=== PATIENT | male | born 1935 | race Caucasian/White ===

== ENCOUNTER 2017-01-10 10:42 | Emergency (ER) | payer MEDICARE, OTHER ==
--- NOTE | 2017-01-10 10:51 | UC ---
Complaint Male HPI - HPI Summary HPI Summary: 81 YEAR OLD MALE PRESENTS WITH COMPLAINS OF RASH ON RIGHT GROWN. - History of Current Complaint Stated Complaint: GROIN Time Seen by Provider: 01/10/17 10:50 Hx Obtained From: Patient Onset/Duration: Sudden Onset Timing: Constant Severity Initially: Moderate Severity Currently: Moderate - Allergies/Home Medications Allergies/Adverse Reactions: Allergies Allergy/AdvReac Type Severity Reaction Status Date / Time No Known Allergies Allergy Verified 01/10/17 10:55 PMH/Surg Hx/FS Hx/Imm Hx - Surgical History Surgical History: Yes Surgery Procedure, Year, and Place: cardiac angioplasty 2001. partial knee replacement 2006. leg stents. venous insufficiency. right groin arterial surgery and bypass 2011 - Social History Alcohol Use: Occasionally Substance Use Type: None Smoking Status (MU): Former Smoker - Immunization History Most Recent Influenza Vaccination: this season Most Recent Tetanus Shot: <2years Most Recent Pneumonia Vaccination: <10 years Review of Systems Constitutional: Negative Skin: Rash - RIGHT GROIN Eyes: Negative ENT: Negative Respiratory: Negative Cardiovascular: Negative Gastrointestinal: Negative Genitourinary: Negative Motor: Negative Neurovascular: Negative Musculoskeletal: Negative Neurological: Negative Psychological: Negative All Other Systems Reviewed And Are Negative: Yes Physical Exam Triage Information Reviewed: Yes Appearance: Well-Appearing Eye Exam: Normal ENT Exam: Normal Dental Exam: Normal Neck exam: Normal Neck: Positive: 1 Respiratory Exam: Normal Cardiovascular Exam: Normal Abdominal Exam: Normal Musculoskeletal Exam: Normal Neurological Exam: Normal Psychological Exam: Normal Skin: Positive: rashes - RIGHT GROIN Complaint Male Course/Dx - Differential Dx/Diagnosis Provider Diagnoses: FUNGAL RASH RIGHT GROIN Discharge - Discharge Plan Condition: Stable Disposition: HOME Prescriptions: Amoxicillin PO (*) [Amoxicillin 875 MG (*)] 875 mg PO BID #20 tab Clotrimazole/Betamethasone* [Lotrisone Cream*] 1 applic TOPICAL BID PRN #90 gm PRN Reason: Itching Nystatin TOP POWDER* 1 applic TOPICAL BID #1 btl Patient Education Materials: Tinea Corporis (ED), Jock Itch (ED), Groin Pain ( ED), Skin Yeast Infection (ED) Referrals: Spencer Murray MD [Primary Care Provider] -
== END 2017-01-10 11:15 | disposition home or self-care (01) ==
LOC: UCEAST 10:42
DX: R21 Rash and other nonspecific skin eruption (principal); Z87.891 Personal history of nicotine dependence
CPT/HCPCS: 99212; G0463

== ENCOUNTER 2017-02-27 10:53 | Emergency (ER) | payer MEDICARE, OTHER ==
[2017-02-27 11:23] VITALS: BP 141/58
== END 2017-02-27 12:20 | disposition left against medical advice (07) ==
LOC: UCEAST 10:53
DX: S91.309A Unspecified open wound, unspecified foot, initial encounter (principal); Z53.21 Procedure and treatment not carried out due to patient leaving prior to being seen by health care provider

== ENCOUNTER 2019-02-17 15:05 | Emergency (ER) | payer MEDICARE, OTHER ==
--- OUTSIDE RECORDS SUMMARY | 2019-02-17 15:11 | XMS REPORT | Summary of Care ---
:1935 Author Organization [facility] Address [address] [address] Care Team Providers Name Role Phone Lit Sharif Unavailable Luis Fishman Primary Care Provider Xavier Toledo MD Unavailable Unavailable Reason for Referral Diagnostic Testing (Routine) Status Reason Specialty Diagnoses / Referred By Referred To Procedures Contact Contact Pending Review Diagnoses S/P AVR (aortic valve replacement) Coronary artery disease involving [place] coronary artery of [place] heart without angina pectoris Kole, Procedures ECHOCARDIOGRAM TTE MD Lit [address] [place] [address] MRI/CAT/PET Scan (Routine) Status Reason Specialty Diagnoses / Procedures Referred By Referred To Contact Contact Authorized Diagnoses Coronary artery disease involving [place] coronary artery of [place] heart without angina pectoris Kole Procedures NM SPECT CHEST HEART PHARMACOLOGIC STRESS/REST (DIGIRAD) MD Lit [address] [place] [address] Reason for Visit Reason Comments Follow Up Pt. in for a follow up. Echo done on 01/12/19. Reports Some Shortness of Breath. Encounter Details Date Type Department Care Team Description 01/19/2019 Office Visit Moe Sharif Dyslipidemia (Primary Dx) ; Cardiology MD Lit S/P AVR (aortic valve replacement); [address] Coronary artery disease involving [place] coronary artery of [place] heart without angina pectoris; [place] [address] [place] [address] Essential hypertension [phone] Allergies No Known Allergiesdocumented as of this encounter (statuses as of 01/19/2019) Medications Medication Sig Dispensed Refills Start Date End Date Status Multiple Vitamin (DAILY Take 1 Each by 0 Active VITAMIN PO) mouth DAILY. Aspirin (SB LOW DOSE ASA Take 1 Each by 0 Active EC) 81 MG Oral Tab EC mouth EVERY MORNING. Glucosamine-Chondroitin Take by mouth. 0 Active (GLUCOSAMINE CHONDR COMPLEX PO) [place]-3 Fatty Acids Take by mouth. 0 Active (FISH OIL BURP-LESS PO) nitroglycerin Place 1 Tab 25 Tab 0 08/30/2015 Active (NITROSTAT) 0.4 MG under tongue Sublingual SL EVERY FIVE TabIndications: Coronary MINUTES artery disease involving NEEDED for chest [place] coronary artery pain. of [place] heart without angina pectoris cyanocobalamin 100 MCG Take 100 mcg by 0 Active Oral Tab mouth DAILY. pregabalin (LYRICA) 100 Take 1 Cap by 180 Cap 3 03/17/2018 Active MG Oral Cap mouth TWICE DAILY. Max Daily Amount: 200 mg. Code D Dx M79.2 atorvastatin (LIPITOR) TAKE 1 TABLET BY 90 Tab 3 09/01/2018 Active 80 MG Oral MOUTH DAILY TabIndications: Dyslipidemia clopidogrel (PLAVIX) 75 Take 1 Tab by 90 Tab 3 09/05/2018 Active MG Oral TabIndications: mouth DAILY. PAD (peripheral artery disease) (FORM[facility]LY [facility]) levothyroxine Take 1 Tab by 90 Tab 3 09/05/2018 Active (SYNTHROID) 25 MCG Oral mouth BEFORE TabIndications: BREAKFAST. Hypothyroid metoprolol succinate Take 1 Tab by 90 Tab 3 09/05/2018 Active (TOPROL XL) 100 MG Oral mouth DAILY. TABLET SR 24 HR fluoxetine (PROZAC) 20 Take 1 Cap by 90 Cap 3 09/05/2018 Active MG Oral Cap mouth DAILY. lisinopril (PRINIVIL, TAKE 1 TABLET BY 90 Tab 1 01/17/2019 Active ZESTRIL) 5 MG Oral Tab MOUTH DAILY documented as of this encounter (statuses as of 01/19/2019) Active Problems Problem Noted Date Solar purpura 08/15/2017 S/P AVR 11/17/2015 S/P CABG (coronary artery bypass graft) 11/17/2015 H/O ETOH abuse 11/07/2014 Knee pain, right 07/20/2014 Stable angina 11/21/2013 Aortic stenosis, severe 11/21/2013 CAD (coronary artery disease) 08/15/2013 Overview: Angioplasty 1995, normal nuclear study 2011 Dyslipidemia 08/14/2011 Overview: LDL 90 on Lipitor 40mg in September 2010 BMI 31.0-31.9,adult 08/14/2011 PAD (peripheral artery disease) Overview: s/p RLE fem-pop, LE stent; 01/2010, vascular surgeon in [facility]; normal stress test 01/2010; significant claudication symptoms; failed angioplasty in [place] 2011 Hypertension Hypothyroid documented as of this encounter (statuses as of 01/19/2019) Resolved Problems Problem Noted Date Resolved Date Sepsis 02/20/2015 09/01/2015 Bacteremia 02/05/2015 09/01/2015 Angina pectoris 11/21/2013 11/21/2013 Atherosclerosis of leg with intermittent claudication 2011 08/15/2013 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 2011 08/15/2013 documented as of this encounter (statuses as of 01/19/2019) Immunizations Name Administration Dates Next Due Depo Medrol (80mg) 01/25/2015, 08/25/2014 Influenza (IM) Preservative Free 11/26/2012, 01/05/2012 Influenza Vaccine High Dose 02/22/2018, 01/13/2017, 02/12/2016, 01/05/2015, 01/09/2014 PNEUMOCOCCAL POLYSACCHARIDE VACCINE 02/12/2016 Pneumococcal Conjugate Vaccine 09/06/2014 documented as of this encounter Social History Tobacco Use Types Packs/Day Years Used Date Former Smoker Cigarettes 1 40 Quit: 04/06/1982 Smokeless Tobacco: Former User Chew Alcohol Use Drinks/Week oz/Week Comments Yes 7 Glasses of wine 21.0 A few drinks a day 14 Standard drinks or equivalent Sex Assigned at Date Recorded Not on file Job Start Date Occupation Industry Not on file Not on file Not on file Travel History Travel Start Travel End No recent travel history available. documented as of this encounter Last Filed Vital Signs Vital Sign Reading Time Taken Comments Blood Pressure 130/68 01/19/2019 10:00 AM EDT Pulse 68 01/19/2019 10:00 AM EDT Temperature - - Respiratory Rate - - Oxygen Saturation - - Inhaled Oxygen Concentration - - Weight 103.4 kg (228 lb) 01/19/2019 10:00 AM EDT Height 177.8 cm (5' 10") 01/19/2019 10:00 AM EDT Body Mass Index 32.71 01/19/2019 10:00 AM EDT documented in this encounter Patient Instructions Patient InstructionsLit Sharif MD - 01/19/2019 10:00 AM EDT No medication changes today. Schedule a nuclear stress test sometime in the next month. NO CAFFEINE FOR 24 HOURS PRIOR TO THE TEST. Schedule an echocardiogram in about 1 year or sooner if needed. documented in this encounter Progress Notes Lit Sharif MD - 01/19/2019 10:00 AM EDT [facility] Note Patient: Jostin Escobar Date of : 1935 Date of Service: 01/19/2019 REFERRING PRACTITIONER: Lit Sharif PRIMARY CARE PROVIDER: Luis Fishman Chief Complaint: Chief Complaint Patient presents with Follow Up Pt. in for a follow up. Echo done on 01/12/19. Reports Some Shortness of Breath. History of Present Illness: We had the pleasure of seeing Jostin Escobar today at the [facility] Cardiology Office. He is a 83-y.o. male with CAD (40% mLAD, SOLE STAINER of OM3, 100% mid RCA with L-->Rcollaterals on cath 10/2013 with SVG sequential to distal RCA and distal OM 11/06/14 during AVR), PAD s/p R CPC CODER, SFA, and profunda endarterectomies 2011, HTN, HLD, severe aortic stenosis s/p #23 Marck-Skaggs Magna bioprosthetic AVR 11/06/[address] Ventura and subsequent MRSA bacteremia (and ?endocarditis) s/p successful antibiotic therapy , EtOH abuse, and obesity. Mr. Escobar returns to cardiology clinic today for routine annual f/u of his CAD , HTN, and bioprosthetic AVR. Since his last visit with me, he reports feeling pretty well. He continues to be limited by his LE claudication and can't quite make it 100 yards before having to stop d/t leg pain. His wifecarl says that he looks quite SOB but the patient denies that symptom and denies any CP/ pressure. Denies any palpitations, lightheadedness, or syncope. No orthopnea, paroxysmal dyspnea, or lower extremity edema. No bleeding issues on ASA and Plavix. Notes that he doesn't have much energy either; was started on Prozac by Dr. Fishman but he hasn't noticed any improvement in his symptoms with that med. 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 CAD (coronary artery disease) 08/15/2013 Angioplasty 1995, Coronary artery disease s/p stent and then CABG V 2014 H/O ETOH abuse 11/07/2014 Hyperlipidemia Hypertension Hypothyroid Knee pain, right 07/20/2014 MRSA infection Osteoarthrosis and allied disorders knees and hips PAD (peripheral artery disease) ([facility]) s/p RLE fem-pop, LE stent; 01/2010, vascular surgeon in [place] and [place]; normal stress test 01/2010; significant claudication symptoms; failed angioplasty in [place] 2011; aspirin only; had R foot ulcer which healed Peripheral neuropathic pain Past Surgical History: Procedure Laterality Date POST-HEART CATH VS & CHECK PULSES BALO ANGIOP ICRA PRQ 1993 0 stents BP IN BOTH ARMS FOR CABG PATIENT CARDIAC SURGERY: POSTOP CABG 11/06/2014 CARDIAC SURGERY: POSTOP VALVE 2014 CATHETERIZATION HEART LEFT N/A 10/21/2013 Procedure: CATHETERIZATION HEART LEFT; Surgeon: Abdifatah Mayers MD; Location: [facility]; Laterality:N/A; CORONARY ARTERIOGRAM, ATTEMPTED PTCA OF SOLE STAINER OF RCA, HEMOBAND TO RIGHT RADIAL CONSULT TO CARDIO/THORACIC SURGERY KNEE ARTHROSCOPY 2006 Partial knee in [place] PA PERIPHERAL ANGIOPLASTY PA RECONSTRUCT SCAPHOID CARPAL W PROSTHESIS PA VEIN BYPASS GRAFT,FEM-POP 2009 TONSILLECTOMY UNLISTED PROCEDURE,MUSCULOSKELE No Known Allergies Current Outpatient Medications Medication Aspirin (SB LOW DOSE ASA EC) 81 MG Oral Tab EC atorvastatin (LIPITOR) 80 MG Oral Tab clopidogrel (PLAVIX) 75 MG Oral Tab cyanocobalamin 100 MCG Oral Tab fluoxetine (PROZAC) 20 MG Oral Cap Glucosamine-Chondroitin (GLUCOSAMINE CHONDR COMPLEX PO) levothyroxine (SYNTHROID) 25 MCG Oral Tab lisinopril (PRINIVIL, ZESTRIL) 5 MG Oral Tab metoprolol succinate (TOPROL XL) 100 MG Oral TABLET SR 24 HR Multiple Vitamin (DAILY VITAMIN PO) nitroglycerin (NITROSTAT) 0.4 MG Sublingual SL Tab [place]-3 Fatty Acids (FISH OIL BURP-LESS PO) pregabalin (LYRICA) 100 MG Oral Cap Family History Problem Relation Age of Onset Cancer Mother breast Hypertension Mother Heart Maternal Grandfather GI Brother Cancer Daughter breast ca; lumpectomy No Known Problems Son No Known Problems Son No Known Problems Daughter Social History Socioeconomic History Marital status: Spouse name: Not on file Number of children: Not on file Years of education: Not on file Highest education level: Not on file Occupational History Not on file Social Needs Financial resource strain: Not on file Food insecurity: Worry: Not on file Inability: Not on file Transportation needs: Medical: Not on file Non-medical: Not on file Tobacco Use Smoking status: Former Smoker Packs/day: 1.00 Years: 40.00 Pack years: 40.00 Types: Cigarettes Last attempt to quit: 04/06/1982 Years since quittin.8 Smokeless tobacco: Former User Types: Chew Substance and Sexual Activity Alcohol use: Yes Alcohol/week: 21.0 standard drinks Types: 7 Glasses of wine, 14 Standard drinks or equivalent per week Comment: A few drinks a day Drug use: No Sexual activity: Not on file Lifestyle Physical activity: Days per week: Not on file Minutes per session: Not on file Stress: Not on file Relationships Social connections: Talks on phone: Not on file Gets together: Not on file Attends taoist service: Not on file Active member of club or organization: Not on file Attends meetings of clubs or organizations: Not on file Relationship status: Not on file Intimate partner violence: Fear of current or ex partner: Not on file Emotionally abused: Not on file Physically abused: Not on file Forced sexual activity: Not on file Other Topics Concern Back Care Not Asked Bike Helmet Not Asked Blood Transfusions Not Asked Caffeine Concern Not Asked Exercise Not Asked Hobby Hazards Not Asked International Travel Not Asked Service Not Asked Occupational Exposure Not Asked Seat Belt Not Asked Self-Exams Not Asked Sleep Concern Not Asked Special Diet Not Asked Stress Concern Not Asked Weight Concern Not Asked Social History Narrative [place] in [place]. 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 Physical Exam: Vitals: 01/19/19 1000 BP: 130/68 Pulse: 68 Weight: 228 lb (103.4 kg) Height: 5' 10" (1.778 m) Body mass index is 32.71 kg/m. General: Obese, alert 83-y.o. male in NAD HEENT: anicteric, MMM, no E/E OP, conj pink Neck: JVP approx 7-8 cm above RA, no carotid bruits or LAD CV: RRR, normal S1/S2 with soft EVELYN at USB as before but no other appreciable murmurs. Pulm: CTA bilaterally without wheezes, rhonchi, or rales. No increased work of breathing. Abd: soft, obese, NT, ND, +BS. No appreciable pulsatile masses or bruits. Ext: 1+ bilateral LE edema R>L as before; no cyanosis, redness, or warmth. Feet warm but non-palpable pedal pulses as before. Neuro: no gross focal deficits Skin: no visible lesions Labs: Lab Results Component Value Date NA 135 09/03/2018 K 4.3 09/03/2018 CL 102 09/03/2018 CO2 25 09/03/2018 GLUCOSE 111 (H) 09/03/2018 BUN 13 09/03/2018 CREATININE 0.8 09/03/2018 CALCIUM 8.7 09/03/2018 TP 6.2 (L) 09/03/2018 ALBUMIN 3.8 09/03/2018 AST 38 09/03/2018 ALT 33 09/03/2018 ALK 70 09/03/2018 TBILI 0.8 09/03/2018 Lab Results Component Value Date CHOL 123 12/17/2016 TRIG 134 12/17/2016 HDL 38 (L) 12/17/2016 LDL 58 12/17/2016 LDLHDLRATIO 1.5 12/17/2016 JOSÉ ANTONIO 3.2 12/17/2016 Cardiac Studies: EKG Today (I personally reviewed): NSR in 60s [id number] deg AVB and incomplete RBBB. Inferior Q waves. No sig change from prior. TTE 01/12/19: FINAL IMPRESSION: Mild concentric LVH with mild left atrial enlargement. Normal LV systolic function with mild RCA/Cx territory wall motion abnormalities, as described. Estimated LVEF 60-65%. Normal right heart size and RV systolic function. Normally functioning bioprosthetic aortic valve, as described. No pericardial effusion. Compared to prior study 08/21/2017, transaortic gradients are similar and calculated aortic valve area is slightly higher (likely due to higher measured LVOT VTI). Other findings are largely similar. Regadenoson SPECT 10/13/13: Impression: Findings indicative of mid size, moderate intensity ischemia involving the apical inferior, apical lateral, mid and part of basal inferolateral segments. These changes are new compared to previous myocardial perfusion study done in 12.10.2011. Fixed defect involving basal, mid inferior and part of basal inferolateral segments Left ventricular ejection fraction 67%. No focal wall motion abnormality is seen. Left Heart Cath 10/21/13: SELECTIVE CORONARY ANGIOGRAPHY: 1. LEFT MAIN CORONARY ARTERY: The left main coronary artery was 6-mm in diameter and 6-mm in length. Mild disease was noted in the left main, about approximately 30%. The left main was bifurcating to the left anterior descending and to the left circumflex. 2. LEFT ANTERIOR DESCENDING CORONARY ARTERY: The left anterior descending coronary artery had only one lesion about 40% in the mid portion that was not hemodynamically significant. 3. LEFT CIRCUMFLEX CORONARY ARTERY: The left circumflex coronary artery had significant chronic total occlusion on the obtuse marginal three branch. The obtuse marginal three branch appeared to be partially getting collaterals, possibly from the left anterior descending. 4. RIGHT CORONARY ARTERY: The right coronary artery was a dominant vessel. The mid portion of the right coronary artery had 100% total occlusion. Downstream from the total occlusion another area of possibly chronic total occlusion was also noted on the [id number] right coronary artery. Importantly also, the posterolateral branch appeared to have approximately 80% occlusion. The posterior descending artery and the posterolateral branch appear to receive collaterals from the circumflex and the left anterior descending. SUMMARY: 1. Three-vessel coronary artery disease. 2. Moderate aortic stenosis. Assessment & Plan: Jostin Escobar is a 83-y.o. male with CAD (40% mLAD, SOLE STAINER of OM3, 100% mid RCA with L-->R collaterals on cath 10/2013 with SVG sequential to distal RCA and distal OM 11/06/14 during AVR), PAD s/p R CPC CODER,SFA, and profunda endarterectomies 2011, HTN, HLD, severe aortic stenosis s/p #23 Marck-EdwardsMagna bioprosthetic AVR 11/06/[address] Ventura and subsequent MRSA bacteremia (and ? endocarditis) s/p successful antibiotic therapy, EtOH abuse, and obesity. ICD-9-CM ICD-10-CM 1. Dyslipidemia 272.4 E78.5 2. S/P AVR (aortic valve replacement) V43.3 Z95.2 ECHOCARDIOGRAM TTE 3. Coronary artery disease involving [place] coronary artery of [place] heart without angina pectoris 414.01 I25.10 AMBULATORY 12 LEAD EKG (GLOBAL) NM SPECT CHEST HEART PHARMACOLOGIC STRESS/REST (DIGIRAD) ECHOCARDIOGRAM TTE 4. Essential hypertension 401.9 I10 1. S/p Bioprosthetic AVR: Valve function normal on recent echo and there is no clinical evidence of worsening valvular function. Cont ASA. Given his history of MRSA bacteremia I would defer to ID as to what abx to use for dental and other procedure prophylaxis in the future. Will plan to repeat an echo in one year for surveillance of the valve. 2. Multivessel Coronary Artery Disease s/p CABG: No classic anginal symptoms at this time, but he does have some worsening fatigue and dyspnea which may be anginal equivalents. I recommend the following medical regimen: Antiplatelets: Continue aspirin 81 mg daily for life, and Plavix indefinitely given his multivessel CAD as well as PAD. Statin: Cont atorvastatin 80mg daily. LDL 58 12/2016. Beta-zahra: Cont Toprol XL 100mg daily. CHRIS-inhibitor: Cont lisinopril. I again counseled on importance of diet/exercise and weight loss. Given that he's never had functional testing since his CABG and has some vague and gradually worsening symptoms as noted above, I have recommended that he do a pharmacologic nuclear stress test sometime in the next month or two. If there is significant ischemia on that test then we'll have to consider the risks/benefits of cath. 3. HTN: BP reasonably well controlled today. Cont meds, including lisinopril, and Toprol XL. I again counseled pt regarding sodium restriction. Thank you for allowing me to participate in the care of Jostin Escobar. We will plan on f/u in our office in ~1 year (shortly after his echo) or sooner prn. I' ll be in touch with him in the meantime regarding his stress test results. If you have any questions or concerns please feel free to call ouroffice at . Lit Sharif MD, 01/19/2019, 10:33 This note was created using my previous note as a template; changes were made where appropriate, andall information in the current note is up to date to the best of my knowledge.Electronically signed by Lit Sharif MD at 2018 10:36 AM EDTdocumented in this encounter Plan of Treatment Date Type Specialty Care Team Description 11/29/2019 Ancillary Procedure Radiology 11/29/2019 Office Visit Vascular Surgery Xiang Moffett MD [address] [id number] Name Type Priority Associated Diagnoses Order Schedule AMBULATORY 12 LEAD EKG EKG Routine Coronary artery Ordered: 01/19/2019 (GLOBAL) disease involving [place] coronary artery of [place] heart without angina pectoris NM SPECT CHEST HEART Imaging Routine Coronary artery Expected: 01/19/2019 PHARMACOLOGIC STRESS/REST disease involving (Approximate), (DIGIRAD) [place] coronary artery Expires: 01/19/2020 of [place] heart without angina pectoris ECHOCARDIOGRAM TTE CV Lab Routine S/P AVR (aortic valve Expected: 2019 replacement) (Approximate), Coronary artery Expires: 02/23/2020 disease involving [place] coronary artery of [place] heart without angina pectoris Health Maintenance Due Date Last Done Comments HIV SCREENING 1950 ZOSTER IMMUNIZATION SERIES 11/26/1987 (1 of 2) INFLUENZA VACCINE (#1) 2018 02/22/2018, 01/13/2017, 02/12/2016, Additional history exists DEPRESSION SCREENING 02/22/2019 02/22/2018 FALL RISK ASSESSMENT 02/22/2019 02/22/2018, 02/22/2018 MEDICARE ANNUAL WELLNESS 02/22/2019 02/22/2018, 02/17/2017, VISIT 08/18/2012, Additional history exists PNEUMOCOCCAL 65+YRS Completed 02/12/2016, 09/06/2014 HPV IMMUNIZATION SERIES Aged Out No longer eligible based on patient's age to complete this topic MENINGOCOCCAL VACCINE IMM Aged Out No longer eligible based on patient's age to complete this topic documented as of this encounter Goals Goal Patient Goal Associated Recent Patient-Stated? Author Type Problems Progress Blood Pressure Blood Pressure 130/68 No Kye, < 150/90 (01/19/2019 MD Luis 10:00 AM EDT) Note: This is an individualized treatment (blood pressure) goal for Jostin Escobar: Displayed above (on the left) is your goal for blood pressure control. Your most recent blood pressure is also shown above, on the right. You should try to achieve blood pressures that are lower than your goal listed above (on the left). Weight loss vs. 18 mo Lifestyle 14.2 (01/19/2019 10:00 AM No Luis Fishman MD max (lbs) >= 10 EDT) Note: This is an individualized lifestyle goal for Jostin Escobar: Your body mass index (BMI) is more than 30. You should lose weight. A reasonable starting goal is to lose 10 pounds. Displayed above is how many pounds you have lost thus far towards your 10 pound weight loss goal. Take all prescribed medications as directed Self-management Luis Murguia MD Note: This is an individualized self-management goal for Jostin Escobar: Please take all prescribed medications as directed. 1. Do not skip doses. If you cannot afford your medications, talk with your doctor. 2. Use a pill reminder system such as a pill box if needed. Your pharmacist can help you with this. 3. Contact your Pharmacy 5 days before your medication runs out. If you cannot take your medications for any reasons, talk with your doctor. 4. Please bring all of your medication bottles and inhalers (or a list of all your medications/inhalers) with you to every visit. Potential barriers to meeting all of your care plan goals will continue to be addressed on an ongoing basis. documented as of this encounter Implants Implanted Type Area Sales Attendant Device Shelf Model / Identifier Expiration Date Serial / Lot Stephanie Biologic Patch 2 X 9cm - [id number] Right: RADHA [id number] / Implanted: Qty: 1 on 01/20/2012 at [facility] Femoral / [id number] Description:RIGHT FEMORAL ARTERY Aortic Magna Marck 23mm - [id number] N/A: Heart [employer] 06/07/2018 [id number] / Implanted: Qty: 1 on 11/06/2014 by Joey Ventura MD at [facility] [id number] / documented as of this encounter Results Not on filedocumented in this encounter Visit Diagnoses Diagnosis Dyslipidemia - Primary Other and unspecified hyperlipidemia S/P AVR (aortic valve replacement) Heart valve replaced by other means Coronary artery disease involving [place] coronary artery of [place] heart without angina pectoris Essential hypertension Unspecified essential hypertension documented in this encounter Additional Health Concerns Infection Noted Time Resolved Time MRSA- Active 01/31/2015 11:09 AM EDT documented as of this encounter Insurance Payer Benefit Plan / Subscriber ID Effective Dates Phone Address Type Group AETNA COMMERCIAL AETNA xxxxxxxxxx 2016-Present Aetna Guarantor Name Account Type Relation to Date of Phone Billing Patient Address ShawnJostin Burciaga Personal/Family 1935 [address] (Home) [place], [place] [phone] [id number] (Work) documented as of this encounter
[2019-02-17 15:24] VITALS: BP 139/77
--- NOTE | 2019-02-17 15:40 | UC ---
Abdominal Pain Male HPI - HPI Summary HPI Summary: 83-year-old male comes in with a chief complaint of upper abdominal pain. Is been going on 3-4 days. Initially had a reported fever of 103. He has had decreased appetite. He reports normal urination and normal bowel movements. He still has his gallbladder. Denies any chest pain. Has chronic shortness of breath. Patient's had vascular surgery for lower extremity claudication at [facility]. Pains about a 5 out of 10. - History of Current Complaint Chief Complaint: UCAbdominalPain Stated Complaint: ABD PAIN Time Seen by Provider: 02/17/19 15:11 Pain Intensity: 6 - Allergies/Home Medications Allergies/Adverse Reactions: Allergies Allergy/AdvReac Type Severity Reaction Status Date / Time No Known Allergies Allergy Verified 02/17/19 15:27 PMH/Surg Hx/FS Hx/Imm Hx Previously Healthy: Yes Endocrine History: Dyslipidemia Cardiovascular History: Hypertension - Surgical History Surgical History: Yes Surgery Procedure, Year, and Place: cardiac angioplasty 2001. partial knee replacement 2006. leg stents. venous insufficiency. right groin arterial surgery and bypass 2011 - Family History Known Family History: Positive: Non-Contributory - Social History Alcohol Use: Occasionally Substance Use Type: None Smoking Status (MU): Former Smoker - Immunization History Most Recent Influenza Vaccination: this season Most Recent Tetanus Shot: <2years Most Recent Pneumonia Vaccination: <10 years Review of Systems All Other Systems Reviewed And Are Negative: Yes Constitutional: Positive: Fever, Other - SEE HPI Skin: Positive: Negative Eyes: Positive: Negative ENT: Positive: Negative Respiratory: Positive: Shortness Of Breath - SEE HPI Cardiovascular: Positive: Negative Gastrointestinal: Positive: Abdominal Pain, Other - SEE HPI Genitourinary: Positive: Negative Motor: Positive: Negative Neurovascular: Positive: Negative Musculoskeletal: Positive: Negative Neurological: Positive: Negative Psychological: Positive: Negative Is Patient Immunocompromised?: No Physical Exam Triage Information Reviewed: Yes Appearance: Well-Appearing, Well-Nourished, Pain Distress - MILD Vital Signs: Initial Vital Signs Temp 98.4 F 02/17/19 15:12 Pulse 61 02/17/19 15:12 Resp 16 02/17/19 15:12 BP 139/77 02/17/19 15:12 Pulse Ox 97 02/17/19 15:12 Vital Signs Reviewed: Yes Eye Exam: Normal Eyes: Positive: Conjunctiva Clear Neck: Positive: Supple Respiratory: Positive: Lungs clear, Normal breath sounds, No respiratory distress Cardiovascular: Positive: RRR Abdomen Description: Positive: Other: - Mild tenderness to palpation in the epigastrium. Bowel Sounds: Positive: Hypoactive Neurological: Positive: Alert Psychological: Positive: Age Appropriate Behavior Skin Exam: Normal Abd Pain Male Course/Dx - Course Course Of Treatment: For the patient's upper abdominal pain I recommended further evaluation in the emergency department. His vital signs are stable here and he has plans to go by POV. He's had most of his care at [facility] and they are planning to go there now. - Differential Dx/Clinical Impression Provider Diagnosis: Upper abdominal pain Discharge ED - Sign-Out/Discharge Documenting (check all that apply): Patient Departure All imaging exams completed and their final reports reviewed: No Studies - Discharge Plan Condition: Stable Disposition: HOME Patient Education Materials: Acute Abdominal Pain (ED) Referrals: Spencer Murray MD [Primary Care Provider] - Additional Instructions: GO DIRECTLY TO THE EMERGENCY DEPARTMENT FOR FURTHER EVALUATION OF YOUR ABDOMINAL PAIN. - Billing Disposition and Condition Condition: STABLE Disposition: Home
== END 2019-02-17 15:55 | disposition home or self-care (01) ==
LOC: UCEAST 15:05
DX: R10.10 Upper abdominal pain, unspecified (principal); I10 Essential (primary) hypertension; R50.9 Fever, unspecified; R06.02 Shortness of breath; Z87.891 Personal history of nicotine dependence
CPT/HCPCS: 99212; G0463